=== PATIENT | female | born 1990 | race Caucasian/White ===

== ENCOUNTER 2018-02-02 09:07 | Emergency (ER) | payer SELFPAY ==
[2018-02-02 09:09] VITALS: BP 124/67; PULSE 101; RESP 16; TEMP 98.2; O2SAT 99
[2018-02-02] MEDS ORDERED: SODIUM CHLORIDE 0.9% FLUSH 10 ML FLUSH IVF PRN (09:30)
[2018-02-02] MEDS ORDERED: SODIUM CHLORID 0.9% 500 ML INJ 500 ML IV ONE (09:30)
--- NOTE | 2018-02-02 09:59 | PD ---
HPI Chief Complaint: Cardiac Complaint Time Seen by Provider: 09:21 Travel History International Travel<30 days: No Contact w/Intl Traveler<30days: No Traveled to known affect area: No History of Present Illness HPI 27-year-old female presents emergency department with reports of episode of shortness of breath, tachycardia, and mild hypertension while walking upstairs at work this morning. Patient states she called her OB, who requested she come in here to be checked out. Currently the patient feels fine. She has no lower extremity edema. She states she is normally very active , still has chronic cramping calf pain from her exercise. She denies any chest pain at this time. Patient is allergic to erythromycin. PFSH Past Medical History ?: Social History Alcohol Use: No Tobacco Use: No Substance Use: No Allergies-Medications (Allergen,Severity, Reaction): Coded Allergies: erythromycin base (Verified Allergy, Unknown, 02/02/18) Review of Systems Except as stated in HPI: all other systems reviewed are Neg General / Constitutional: No: Fever Eyes: No: Visual changes HENT: No: Headaches Cardiovascular: No: Chest Pain or Discomfort Respiratory: Positive: Shortness of Breath (See history of present illness per) Gastrointestinal: No: Abdominal Pain Genitourinary: No: Dysuria Musculoskeletal: No: Pain Skin: No Rash Neurologic: No: Weakness Psychiatric: No: Depression Endocrine: No: Polydipsia Hematologic/Lymphatic: No: Easy Bruising Physical Exam Narrative GENERAL: Patient appears in no acute distress. SKIN: Warm and dry. Normal color. Normal turgor. No rash. HEAD: Atraumatic. Normocephalic. EYES: Pupils equal and round. No scleral icterus. No injection or drainage. ENT: No nasal bleeding or discharge. Mucous membranes pink and moist. NECK: Trachea midline. Supple and nontender. CARDIOVASCULAR: Regular rate and rhythm. RESPIRATORY: No accessory muscle use. Clear to auscultation. Breath sounds equal bilaterally. GASTROINTESTINAL: Abdomen soft, non-tender, nondistended. Hepatic and splenic margins not palpable. MUSCULOSKELETAL: Extremities without clubbing, cyanosis, or edema. No obvious deformities. NEUROLOGICAL: Awake and alert. No obvious cranial nerve deficits. Motor grossly within normal limits. Five out of 5 muscle strength in the arms and legs. Normal speech. PSYCHIATRIC: Appropriate mood and affect; insight and judgment normal. Data Data Last Documented VS Vital Signs Date Time Temp Pulse Resp B/P (MAP) Pulse Ox O2 Delivery O2 Flow Rate FiO2 02/02/18 10:16 100 Room Air 02/02/18 09:09 98.2 101 16 124/67 (86) Orders Orders Electrocardiogram (02/02/18:29) Ckmb (Isoenzyme) Profile (02/02/18:29) Complete Blood Count With Diff (02/02/18:) Comprehensive Metabolic Panel (02/02/18) Prothrombin Time / Inr (Pt) (02/02/18) Act Partial Throm Time (Ptt) (02/02/18:) Troponin I (02/02/18) Ecg Monitoring (02/02/18) Iv Access Insert/Monitor (02/02/18) Oximetry (02/02/18) Oxygen Administration (02/02/18:29) Sodium Chloride 0.9% Flush (Ns Flush) (02/02/18:30) Sodium Chlorid 0.9% 500 Ml Inj (Ns 500 M (02/02/18:30) Beta Hcg (Quant/Titer) (02/02/18:29) Heart Tones (02/02/18:29) Us Leg Venous Doppler Bilat (02/02/18:29) Labs Laboratory Tests Test 02/02/18 10:10 White Blood Count 8.9 TH/MM3 Red Blood Count 4.31 MIL/MM3 Hemoglobin 13.9 GM/DL Hematocrit 39.9 % Mean Corpuscular Volume 92.5 FL Mean Corpuscular Hemoglobin 32.2 PG Mean Corpuscular Hemoglobin Concent 34.8 % Red Cell Distribution Width 12.5 % Platelet Count 212 TH/MM3 Mean Platelet Volume 8.8 FL Neutrophils (%) (Auto) 74.9 % Lymphocytes (%) (Auto) 19.5 % Monocytes (%) (Auto) 5.0 % Eosinophils (%) (Auto) 0.4 % Basophils (%) (Auto) 0.2 % Neutrophils # (Auto) 6.6 TH/MM3 Lymphocytes # (Auto) 1.7 TH/MM3 Monocytes # (Auto) 0.4 TH/MM3 Eosinophils # (Auto) 0.0 TH/MM3 Basophils # (Auto) 0.0 TH/MM3 CBC Comment DIFF FINAL Differential Comment Prothrombin Time 10.0 SEC Prothromb Time International Ratio 1.0 RATIO Activated Partial Thromboplast Time 26.1 SEC Blood Urea Nitrogen 7 MG/DL Creatinine 0.56 MG/DL Random Glucose 74 MG/DL Total Protein 7.5 GM/DL Albumin 3.6 GM/DL Calcium Level 8.8 MG/DL Alkaline Phosphatase 48 U/L Aspartate Amino Transf (AST/SGOT) 21 U/L Alanine Aminotransferase (ALT/SGPT) 25 U/L Total Bilirubin 0.5 MG/DL Sodium Level 140 MEQ/L Potassium Level 3.8 MEQ/L Chloride Level 106 MEQ/L Carbon Dioxide Level 23.8 MEQ/L Anion Gap 10 MEQ/L Estimat Glomerular Filtration Rate 131 ML/MIN Total Creatine Kinase 57 U/L Troponin I LESS THAN 0.02 NG/ML Human Chorionic Gonadotropin, Quant [id number] MIU/ML [facility] Medical Decision Making Medical Screen Exam Complete: Yes Emergency Medical Condition: Yes Differential Diagnosis Palpitations. Shortness of breath. 15 weeks . Narrative Course Patient is medically stable time exam. She is not tachycardic or tachypneic on exam. Labs ordered, including CBC, CMP, troponin, proBNP, serum hCG, and coagulation studies. Chest x-ray was discussed with patient refused. Bilateral lower extremity ultrasound ordered. Lower extremity ultrasounds are negative for DVTs. CBC is unremarkable. EKG shows sinus rhythm with a rate of 84. Chemistries are unremarkable. Troponin is less than 0.02. HCG is 26,540. heart tones show a heartbeat of 140/min. Patient is felt medically stable for discharge. I feel the patient is a very low risk. Patient is to rest and push fluids and follow-up with her OB as needed. Diagnosis Primary Impression: Near syncope Additional Impression: Qualified Codes: Z3A.15 - 15 weeks gestation of Referrals: [facility] Patient Instructions: General Instructions Departure Forms: Work Release Enter return to work date: Feb 03, 2018 Additional Instructions: Lower extremity ultrasounds are negative for DVTs. CBC is unremarkable. EKG shows sinus rhythm with a rate of 84. Chemistries are unremarkable. Troponin is less than 0.02. HCG is 26,540. heart tones show a heartbeat of 140/min. Patient is felt medically stable for discharge. I feel the patient is a very low risk. Patient is to rest and push fluids and follow-up with her OB as needed. Disposition: 01 DISCHARGE HOME Condition: Stable Zander Mcgee Feb 02, 2018 09:59
[2018-02-02 10:16] VITALS: O2SAT 100
[2018-02-02 10:27] LABS: AUTOMATED NEUTROPHIL # 6.6 TH/MM3 (1.8-7.7); BASOPHIL % 0.2 % (0.0-2.0); EOSINOPHIL % 0.4 % (0.0-4.0); HEMATOCRIT 39.9 % (35.0-46.0); HEMOGLOBIN 13.9 GM/DL (11.6-15.3); LYMPH % 19.5 % (9.0-44.0); LYMPHOCYTE # 1.7 TH/MM3 (1.0-4.8); MEAN CELL VOLUME 92.5 FL (80.0-100.0); MEAN CORPUSCULAR HEMOGLOBIN 32.2 PG (27.0-34.0); MEAN CORPUSCULAR HGB CONC 34.8 % (32.0-36.0); MEAN PLATELET VOLUME 8.8 FL (7.0-11.0); MONOCYTE # 0.4 TH/MM3 (0-0.9); NEUT % 74.9 % (16.0-70.0); PLATELET COUNT 212 TH/MM3 (150-450); RED BLOOD COUNT 4.31 MIL/MM3 (4.00-5.30); RED CELL DISTRIBUTION WIDTH 12.5 % (11.6-17.2); WHITE BLOOD COUNT 8.9 TH/MM3 (4.0-11.0)
[2018-02-02 10:44] LABS: ALBUMIN 3.6 GM/DL (3.4-5.0); AST (GOT) 21 U/L (15-37); BICARBONATE 23.8 MEQ/L (21.0-32.0); BLOOD UREA NITROGEN 7 MG/DL (7-18); CALCIUM 8.8 MG/DL (8.5-10.1); CHLORIDE 106 MEQ/L (98-107); CREATININE 0.56 MG/DL (0.50-1.00); GLOMERULAR FILTRATION RATE 131 ML/MIN (>89); GLUCOSE,RANDOM 74 MG/DL (74-106); SODIUM (NA) 140 MEQ/L (136-145)
--- NOTE | 2018-02-02 10:58 | RADRPT ---
EXAM DATE/TIME: 02/02/2018 10:03 [place] COMPARISON: No previous studies available for comparison. INDICATIONS : Bilateral leg swelling. MEDICAL HISTORY : . Shortness of breath. Mild hypertension. Tacycardia. Bilateral leg swelling. SURGICAL HISTORY : None. ENCOUNTER: Initial ACUITY: 2-5 days PAIN SCORE: 6/10 LOCATION: Bilateral leg. TECHNIQUE: Venous ultrasound of the left and right leg was performed from the inguinal ligament to the proximal calf. Real-time, color Doppler and spectral tracing, compression and augmentation techniques were us ed. FINDINGS: RIGHT LEG: There is normal compressibility of the deep venous system from the inguinal region to the proximal ca lf. No echogenic clot is seen in the lumen of the common femoral, femoral, popliteal, and posterior tibial veins. There is a normal response of the venous system to proximal and distal augmentation an d respiration. LEFT LEG: There is normal compressibility of the deep venous system from the inguinal region to the proximal ca lf. No echogenic clot is seen in the lumen of the common femoral, femoral, popliteal, and posterior tibial veins. There is a normal response of the venous system to proximal and distal augmentation an d respiration. CONCLUSION: No evidence of DVT or SVT. Amos Lema MD on February 02, 2018 at 10:55 Board Certified Radiologist. This report was verified electronically.
[2018-02-02 11:00] LABS: ALKALINE PHOSPHATASE 48 U/L (45-117); ALT (GPT) 25 U/L (10-53); TOTAL BILIRUBIN ADULT 0.5 MG/DL (0.2-1.0); TOTAL PROTEIN 7.5 GM/DL (6.4-8.2); TROPONIN I LESS THAN 0.02 NG/ML (0.02-0.05)
--- NOTE | 2018-02-02 14:47 | EKG ---
Date Performed: 02/02/2018 Time Performed: 09:59:34 PTAGE: 27 years EKG: Sinus rhythm WITH SINUS ARRHYTHMIA WITH SHORT WA INTERVAL BORDERLINE ECG NO PREVIOUS TRACING DOCTOR: Lucas Cortés Interpretating Date/Time 02/02/2018 14:44:16
== END 2018-02-02 11:53 | disposition home or self-care (01) ==
LOC: NEPD 09:07
DX: O26.892 Other specified pregnancy related conditions, second trimester (principal); R55 Syncope and collapse; Z3A.15 15 weeks gestation of pregnancy
CPT/HCPCS: 80053; 82550; 84484; 84702; 85025; 85610; 85730; 93005; 93970; 99285; J7040

== ENCOUNTER 2018-07-01 06:41 | Inpatient (IN) ==
[2018-07-01] MEDS ORDERED: Sodium Chlor 0.9% Inj 500 ML IV.SIG PRN (07:29)
[2018-07-01] MEDS ORDERED: Sod Chloride 0.9% Inj 1,000 ML IV.CONT PRN (07:29)
[2018-07-01] MEDS ORDERED: Naloxone Inj 0.4 MG/ML Vial IV.PUSH PRN (07:29)
[2018-07-01] MEDS ORDERED: fentaNYL Citrate Inj 100 MCG/2 ML Ampul IV.PUSH PRN ×2 (07:29)
[2018-07-01] MEDS ORDERED: Penicillin G Potassium Inj 5,000,000 UNIT in Sodium Chloride 0.9% Inj 100 ML IV.SIG ONE (07:29)
[2018-07-01] MEDS ORDERED: Oxytocin 30 Units/500ml Premix 30 UNITS/500 ML BAG IV.SIG ONE (07:29)
[2018-07-01] MEDS ORDERED: Citric Acid/Sodium Citrate Liq 30 ML UDC PO SCH (07:30)
--- NOTE | 2018-07-01 07:35 | P.HPOB ---
History of Present Illness Primary Care Physician: UNKNOWN Dr. Morrison Chief Complaint: Water broke History of Present Illness: Patient 28-year-old white female 35 weeks and 5 days patient of [facility] who presents with spontaneous rupture membranes, amnio sure is positive. She has no pain bleeding, NST is reactive and she is not daivd Weeks Gestation:: 35 Para: 0 : 1 Review of Systems Constitutional: Denies anorexia, Denies body ache(s), Denies chills, Denies daytime sleepiness, Denies excessive sweating, Denies fatigue, Denies fever(s), Denies headache(s), Denies increased appetite, Denies lack of energy, Denies malaise, Denies night sweats, Denies weakness, Denies weight gain, Denies weight loss, Denies other Cardiovascular: Denies bluish discoloration of hand/feet, Denies chest pain, Denies chest pain at rest, Denies chest pain with activity, Denies excessive sweating, Denies fainting, Denies fast heart rate, Denies foot swelling, Denies generalized swelling, Denies irregular heart rhythm, Denies leg pain with activity, Denies leg sores, Denies leg swelling, Denies lightheadedness, Denies radiating jaw, neck or arm pain, Denies rapid, pounding, or irregular heartbeat , Denies shortness of breath, Denies shortness of breath with activity, Denies shortness of breath when lying down, Denies shortness of breath causing sudden awakening, Denies slow heart rate, Denies other Respiratory: Denies change in phlegm color, Denies chest congestion, Denies cough, Denies coughing up blood, Denies excessive phlegm production, Denies pain on inspiration, Denies pain with cough, Denies shortness of breath, Denies shortness of breath with activity, Denies snoring, Denies stridor, Denies wheezing, Denies other Gastrointestinal: Denies abdominal pain, Denies belching, Denies black, tarry stools, Denies bloating, Denies bright, red blood in stools, Denies change in bowel habits, Denies constant urge to pass stool, Denies change in stools, Denies coffee ground vomit, Denies constipation, Denies cramping, Denies difficulty swallowing, Denies excessive passing of gas, Denies feeling full early, Denies heartburn, Denies incontinent of stools, Denies loose stools, Denies nausea, Denies pain with swallowing, Denies vomiting, Denies vomiting blood, Denies other Genitourinary: Reports vaginal discharge, Denies abnormal periods, Denies abnormal vaginal bleeding, Denies absent period, Denies bleeding between periods , Denies blood in urine, Denies difficulty starting urination, Denies difficulty urinating, Denies dribbling after urination, Denies frequent nighttime urination, Denies genital itching, Denies genital lesions, Denies heavy periods, Denies hot flashes, Denies light periods, Denies nipple discharge , Denies painful intercourse, Denies painful periods, Denies painful urination, Denies pelvic pain, Denies prolapse symptoms, Denies sexual problems, Denies side pain, Denies urinary incontinence, Denies urinary urgency, Denies vaginal dryness, Denies vaginal odor, Denies vaginal itching, Denies other Neurologic: Denies abnormal hearing, Denies abnormal movements, Denies abnormal speech, Denies abnormal walking, Denies behavioral changes, Denies burning sensations, Denies confusion, Denies dizziness, Denies fainting, Denies frequent falls, Denies headache(s), Denies lack of coordination, Denies localized weakness, Denies loss of vision, Denies memory loss, Denies numbness, Denies other visual disturbances, Denies radiating pain, Denies restless legs, Denies convulsions, Denies seizure-like activity, Denies sensory deficit, Denies tingling, Denies tingling/numbness/burning sensations, Denies tremor(s), Denies unsteadiness, Denies weakness, Denies other PMFSH - Medical History Medical History: Medical History (Last Updated 07/01/18 @ 07:41 by Carlitos Sesay MD) Asthma - Tobacco History Smoking Status: Never smoker - Alcohol History How Often Do You Have a Drink Containing Alcohol: Never - Substance Use History Substance History: No History of Abuse - Travel History History of Recent Travel: No Recent Travel in the [facility] Within the Last 8 Weeks: No Recent Travel Out of the Country Within the Last 8 Weeks: No Medications and Allergies Active Medications: Active Medications Citric Acid/Sodium Citrate (Sodium Citrate/Citric Acid Liq) 30 ml PO GUN WELDER SENTHIL Stop: 07/05/18 07:29 Fentanyl Citrate (Fentanyl Inj) 50 mcg IV.PUSH Q1H PRN PRN Reason: Pain Scale 3 - 5 Fentanyl Citrate (Fentanyl Inj) 100 mcg IV.PUSH Q1H PRN PRN Reason: PAIN SCALE 6 TO 10 Lidocaine HCl (Xylocaine 1% Inj) 0.1 ml I-DERMAL PRN PRN PRN Reason: For IV start Stop: 07/04/18 07:28 Allergies Allergy/AdvReac Type Severity Reaction Status Date / Time erythromycin base Allergy Unknown Verified 02/02/18 09:11 Home Medications Medication Instructions Recorded Confirmed Type [id number] acid 1 tab PO DAILY 07/01/18 07/01/18 History [PreNata] Exam Vital signs: Vital Signs 07/01/18 07:01 Temperature 98.4 F Pulse Rate 66 Respiratory Rate 18 Blood Pressure 140/96 H Intake & Output 06/30/18 07/01/18 07/01/18 18:59 06:59 18:59 Weight 65.771 kg - Constitutional no acute distress - Routine HEENT Exam Head: Present: normocephalic, atraumatic Eye: Present: PERRL - Routine Respiratory Exam Present: CTA bilaterally - Routine Cardiovascular Exam Present: RRR, S1, S2 - Routine Exam Comments: Cervix is 1/50/-3 posterior/cephalic - Routine Neurological Exam Present: alert, oriented X3, CN II-XII intact Results - Labs Labs: amnisure+ Caprini VTE Risk Assessment Caprini VTE Risk Assessment: No/Low Risk (score <= 1) Caprini Risk Assessment Model: Point Value = 1 Point Value = 2 Point Value = 3 Point Value = 5 Age 41-60 Minor surgery BMI > 25 kg/m2 Swollen legs Varicose veins or History of unexplained or recurrent spontaneous Oral contraceptives or hormone replacement Sepsis (< 1 month) Serious lung disease, including pneumonia (< 1 month) Abnormal pulmonary function Acute myocardial infarction Congestive heart failure (< 1 month) History of inflammatory bowel disease Medical patient at bed rest Age 61-74 Arthroscopic surgery Major open surgery (> 45 min) Laparoscopic surgery (> 45 min) Malignancy Confined to bed (> 72 hours) Immobilizing plaster cast Central venous access Age >= 75 History of VTE Family history of VTE Factor V Leiden Prothrombin [id number] Lupus anticoagulant Anticardiolipin antibodies Elevated serum homocysteine Heparin-induced thrombocytopenia Other congenital or acquired thrombophilia Stroke (< 1 month) Elective arthroplasty Hip, pelvis, or leg fracture Acute spinal cord injury (< 1 month) Prophylaxis Regimen: Total Risk Factor Score Risk Level Prophylaxis Regimen 0-1 Low Early ambulation 2 Moderate Order ONE of the following: *Sequential Compression Device (SCD) *Heparin 5000 units SQ BID 3-4 Higher Order ONE of the following medications: *Heparin 5000 units SQ TID *Enoxaparin/Lovenox 40 mg SQ daily (WT < 150 kg, CrCl > 30 mL/min) *Enoxaparin/Lovenox 30 mg SQ daily (WT < 150 kg, CrCl > 10-29 mL/min) *Enoxaparin/Lovenox 30 mg SQ BID (WT < 150 kg, CrCl > 30 mL/min) AND/OR *Sequential Compression Device (SCD) 5 or more Highest Order ONE of the following medications: *Heparin 5000 units SQ TID (Preferred with Epidurals) *Enoxaparin/Lovenox 40 mg SQ daily (WT < 150 kg, CrCl > 30 mL/min) *Enoxaparin/Lovenox 30 mg SQ daily (WT < 150 kg, CrCl > 10-29 mL/min) *Enoxaparin/Lovenox 30 mg SQ BID (WT < 150 kg, CrCl > 30 mL/min) AND *Sequential Compression Device (SCD) Assessment and Plan - Diagnosis (1) Premature rupture of membranes (PROM) affecting first Code(s): O42.90 - Premature rupture of membranes, unspecified as to length of time between rupture and onset of labor, unspecified weeks of gestation Status : Acute (2) 35 weeks gestation of Code(s): Z3A.35 - 35 weeks gestation of Status: Acute - Plan Patient's primiparous 35 week36 week IUP with PPROM, amnio sure is positive. Patient not david her in labor at this time cervix is 1 cm dilated 50% Plan is admission to the hospital will induce labor due to being ruptured after [address] rosario is on for K[facility]
[2018-07-01] MEDS ORDERED: Betamethasone Sod Phos/Acetate Inj 30 MG/5 ML Vial IM ONE (08:06)
[2018-07-01 08:11] LABS: Baso % (Auto) 0.3 % (0.0-2.0); Eos # (Auto) 0.1 th/mm3 (0.0-0.4); Hematocrit 37.4 % (35.0-46.0); Hemoglobin 12.4 gm/dL (11.6-15.3); Lymph # (Auto) 2.2 th/mm3 (1.0-4.8); Lymph % (Auto) 17.4 % (9.0-44.0); Mean Corpuscular HGB Conc 33.2 % (32.0-36.0); Mean Corpuscular Volume 93.4 fL (80.0-100.0); Mean Platelet Volume 10.3 fL (7.0-11.0); Mono # (Auto) 0.9 th/mm3 (0.0-0.9); Mono % (Auto) 7.1 % (0.0-8.0); Neut # (Auto) 9.2 th/mm3 (1.8-7.7); Neut % (Auto) 74.2 % (16.0-70.0); Platelet Count 181 th/mm3 (150-450); Red Cell Distribution Width 12.8 % (11.6-17.2); White Blood Count 12.4 th/mm3 (4.0-11.0)
[2018-07-01 08:16] LABS: Bacteria,Urine Rare /hpf; Bilirubin,Urine Negative (Negative); Clarity,Urine Clear (Clear); Color,Urine Straw (Yellw/Straw); Glucose,Urine (UA) Negative (Negative); Leukocyte Esterase,Urine Negative (Negative); Nitrite,Urine Negative (Negative); Specific Gravity,Urine 1.008 (1.002-1.035); Squamous Epithelial Cell,Urine 2 /hpf (0-5)
[2018-07-01 08:21] LABS: Amphetamine Urine With Conf Neg (Neg); Benzodiazepine Urine With Conf Neg (Neg)
--- NOTE | 2018-07-01 10:47 | P.OBGPN ---
S: Patient doing well, no contractions, no fever or chills, denies headache, blurred vision or epigastric pain. O: VS: Exam: deferred, on arrival was reported to be grossly ruptured, cervix 1/50/- 3. Abdomen: Soft, gravid, no fundal tenderness FHTs: 140s, moderate variability, accelerations present, no decelerations TOCO: Lots of artifact, but no obvious contractions A/P 28-year-old G1 at 35 weeks and 5 days by 7 week ultrasound admitted for PPROM. 1. IUP: Category 1 tracing, continuous monitoring. -Cephalic by ultrasound on arrival, GBS negative as an outpatient, estimated weight clinically 6-1/2 pounds. -Male fetus 2. PPROM: Given late gestational age and no expectation to spontaneously deliver in the immediate future and no signs of infection plan is for expectant management until she received her second dose of betamethasone tomorrow at 8:30 AM and then begin augmentation. The patient becomes febrile will augment or if begins to progress spontaneously will not tocolyse - BID EFM, allow to eat, stop IV fluids, to antepartum status 3. Elevated blood pressures: No signs or symptoms of preeclampsia, will collect CMP and urine protein creatinine ratio via in and out cath.
[2018-07-01] MEDS ORDERED: Penicillin G Potassium Inj 2,500,000 UNIT in Sodium Chlor 0.9% Inj 100 ML IV.SIG SCH (11:31)
[2018-07-01 13:35] LABS: Albumin 2.6 g/dL (3.4-5.0); Anion Gap 10 meq/L (5-15); Aspartate Aminotransferase 30 U/L (15-37); Blood Urea Nitrogen 11 mg/dL (7-18); Calcium 8.7 mg/dL (8.5-10.1); Carbon Dioxide 19.5 meq/L (21.0-32.0); Chloride 110 meq/L (98-107); Glomerular Filtration Rate Greater Than 89 mL/min (>89); Glucose,Random 84 mg/dL (74-106); Potassium 4.2 meq/L (3.5-5.1); Sodium 139 meq/L (136-145)
[2018-07-01 13:36] LABS: Alanine Aminotransferase 18 U/L (10-53)
[2018-07-01 13:38] LABS: Alkaline Phosphatase 400 U/L (45-117); Total Protein 6.9 g/dL (6.4-8.2)
[2018-07-01] MEDS ORDERED: Butalbital/APAP/Caff 50/325/40 MG Tablet PO ONE (16:00)
[2018-07-01 16:10] LABS: Protein/Creatinine Ratio,Urine 0.29 (0.00-0.14)
[2018-07-02] MEDS: Prenatal Vit/Ca/Iron/Folic Acid Tablet PO SCH (08:05)
--- NOTE | 2018-07-02 08:29 | P.OBANTE ---
Objective Vital Signs and I&O: Vital Signs 07/01/18 09:00 07/01/18 09:35 07/01/18 09:36 Temperature 98.3 F Pulse Rate 78 Respiratory Rate 18 16 Blood Pressure 131/76 07/01/18 09:40 07/01/18 10:55 07/01/18 11:00 Temperature 99.0 F Pulse Rate 93 H 81 Respiratory Rate 18 Blood Pressure 07/01/18 11:25 07/01/18 12:00 07/01/18 14:37 Temperature 98.0 F Pulse Rate 77 88 Respiratory Rate 17 16 Blood Pressure 142/93 H 07/01/18 15:10 07/01/18 15:20 07/01/18 15:50 Temperature Pulse Rate 88 87 86 Respiratory Rate Blood Pressure 130/71 07/01/18 18:00 07/01/18 19:36 07/01/18 19:37 Temperature Pulse Rate 80 Respiratory Rate 17 16 Blood Pressure 137/96 H 07/01/18 20:25 07/01/18 22:00 07/02/18 00:00 Temperature 97.8 F 98.4 F Pulse Rate 75 67 Respiratory Rate 16 14 Blood Pressure 112/52 L 07/02/18 02:00 07/02/18 04:31 07/02/18 04:45 Temperature 98.8 F 98.1 F Pulse Rate 81 73 Respiratory Rate Blood Pressure 124/72 07/02/18 04:55 07/02/18 05:15 07/02/18 05:55 Temperature Pulse Rate 76 78 70 Respiratory Rate Blood Pressure 07/02/18 06:00 07/02/18 06:23 07/02/18 06:55 Temperature 98.2 F Pulse Rate 77 78 Respiratory Rate Blood Pressure 07/02/18 07:05 07/02/18 07:20 07/02/18 07:50 Temperature Pulse Rate 74 67 88 Respiratory Rate Blood Pressure 07/02/18 07:55 Temperature Pulse Rate 77 Respiratory Rate Blood Pressure Intake & Output 07/01/18 07/02/18 07/02/18 18:59 06:59 18:59 Weight 65.771 kg Lab and Micro Results: Laboratory Results - last 24 hr 07/01/18 07/01/18 07/01/18 08:00 08:00 12:12 Sodium 139 Potassium 4.2 Chloride 110 H Carbon Dioxide 19.5 L Anion Gap 10 BUN 11 Creatinine 0.72 Estimated GFR Greater than 89 Random Glucose 84 Calcium 8.7 Total Bilirubin 0.5 AST 30 ALT 18 Alkaline Phosphatase 400 H Total Protein 6.9 Albumin 2.6 L Ur Random Creatinine 39 U Random Total Protein 11.5 Protein/Creatinin Ratio 0.29 H Blood Type B Positive Blood Type Recheck Required Antibody Screen Negative Physical Exam: GENERAL: Well-nourished, well-developed patient. CARDIOVASCULAR: Regular rate and rhythm without murmurs, gallops, or rubs. RESPIRATORY: Breath sounds equal bilaterally. No accessory muscle use. ABDOMEN/GI: Abdomen soft, non-tender. Fundus: [-] GENITOURINARY: External Genitalia: Cervix: defer Presentation: ceph Membranes: srom Uterine Contractions: [-] FHT's: Category: [-] Baseline: [-] Reactive: [-] Variability: [-] Decels: [-] EXTREMITIES: No cyanosis or edema, non-tender, without signs of DVT. Assessment and Plan - Plan 28-year-old G1 at 35 weeks and 6 days by 7 week ultrasound admitted for PPROM. 1. IUP: Category 1 tracing, continuous monitoring. -Cephalic by ultrasound on arrival, GBS negative as an outpatient, estimated weight clinically 6-1/2 pounds. -Male fetus 2. PPROM: Given late gestational age and no expectation to spontaneously deliver in the immediate future and no signs of infection plan is for expectant management until she received her second dose of betamethasone today at 8:30 AM and then begin induction this afternoon. 3. Elevated blood pressures: No signs or symptoms of preeclampsia, will collect CMP and urine protein creatinine ratio via in and out cath.
[2018-07-02] MEDS ORDERED: Betamethasone Sod Phos/Acetate Inj 30 MG/5 ML Vial IM ONE (08:30)
[2018-07-02] MEDS ORDERED: Oxytocin 30 Units/500ml Premix 30 UNITS/500 ML BAG IV.SIG PRN (10:14)
[2018-07-02] MEDS ORDERED: Sodium Chlor 0.9% Inj 500 ML IV.SIG PRN (10:18)
[2018-07-02] MEDS ORDERED: Sod Chloride 0.9% Inj 1,000 ML IV.CONT PRN (10:18)
[2018-07-02] MEDS ORDERED: fentaNYL Citrate Inj 100 MCG/2 ML Ampul IV.PUSH PRN ×2 (10:18)
[2018-07-02] MEDS ORDERED: Penicillin G Potassium Inj 5,000,000 UNIT in Sodium Chloride 0.9% Inj 100 ML IV.SIG ONE (10:30)
[2018-07-02] MEDS ORDERED: Citric Acid/Sodium Citrate Liq 30 ML UDC PO SCH (10:30)
[2018-07-02] MEDS ORDERED: Oxytocin 30 Units/500ml Premix 30 UNITS/500 ML BAG IV.SIG ONE (10:35)
[2018-07-02] MEDS ORDERED: fentaNYL 2MCG-Bupiv 0.125% Epi 150 ML EPIDURAL ONE (13:02)
[2018-07-02] MEDS ORDERED: fentaNYL Citrate Inj 100 MCG/2 ML Ampul EPIDURAL ONE (14:16)
[2018-07-02] MEDS ORDERED: fentaNYL 2MCG-Bupiv 0.125% Epi 150 ML EPIDURAL PRN (14:16)
[2018-07-02] MEDS ORDERED: Penicillin G Potassium Inj 2,500,000 UNIT in Sodium Chlor 0.9% Inj 100 ML IV.SIG SCH (14:30)
[2018-07-02] MEDS ORDERED: Witch Hazel 50%/Glyderin 12.5% 40 Pad Jar RECTAL PRN (16:30)
[2018-07-02] MEDS ORDERED: Oxytocin 30 Units/500ml Premix 30 UNITS/500 ML BAG IV.CONT SCH (16:30)
[2018-07-02] MEDS ORDERED: Acetaminophen 325 MG Tablet PO PRN (16:30)
[2018-07-02] MEDS ORDERED: Benzocaine 20% Top Spray 60 ML Can TOPICAL PRN (16:30)
[2018-07-02] MEDS ORDERED: Naloxone Inj 0.4 MG/ML Vial IV.PUSH PRN (16:30)
[2018-07-02] MEDS ORDERED: Bisacodyl 10 MG Supp RECTAL PRN (16:30)
--- NOTE | 2018-07-02 16:34 | P.OBDELI ---
Weeks Gestation: 35 Active Labor Start Date: 07/02/18 Medical Induction of Labor: No Artificial Rupture of Membrane: No Anesthesia: Epidural Episiotomy: none Vaginal Delivery: Normal Presentation: Occiput anterior Nuchal Cord: x1 Delayed Cord Clamping (45 sec): No (tight nucal cord cut on perineum) Placenta: Spontaneous delivery, Intact, 3 vessel cord Laceration: Vaginal, 1 deg Estimated blood loss (mL): 250 Male A score (1 min): 8 score (5 min): 9 (Mansi reddy of [place]. Small first degree laceration 1cm right periurethral repaired with 5-0 vicryl)
[2018-07-02] MEDS ORDERED: Measles/Mumps/Rubella Vaccine Inj 0.5 ML Vial SQ ONE (17:00)
[2018-07-02] MEDS ORDERED: Zolpidem Tartrate 5 MG Tablet PO PRN (17:00)
[2018-07-02] MEDS ORDERED: Diphtheria/Tetanus/Pertussis Vaccine Inj 0.5 ML Syringe IM ONE (17:00)
[2018-07-02] MEDS: Ibuprofen 400 MG Tablet PO PRN (21:30)
[2018-07-03] MEDS: Prenatal Vit/Ca/Iron/Folic Acid Tablet PO SCH (08:06)
[2018-07-03] MEDS: Senna/Docusate Sodium 8.6/50 MG Tablet PO SCH ×2 (08:06→22:17)
--- NOTE | 2018-07-03 10:51 | P.PNOB ---
Subjective Post day: 1 Interval history: Doing well Baby is great Bleeding is normal Pain is well controlled Objective Vital Signs/I&O: Vital Signs 07/02/18 10:55 07/02/18 12:30 07/02/18 12:31 Temperature 98.2 F Pulse Rate 81 78 86 Respiratory Rate Blood Pressure 135/82 07/02/18 13:10 07/02/18 13:20 07/02/18 13:21 Temperature 98.4 F Pulse Rate 90 87 77 Respiratory Rate 16 Blood Pressure 131/69 126/62 07/02/18 13:26 07/02/18 13:30 07/02/18 13:35 Temperature Pulse Rate 84 88 89 Respiratory Rate Blood Pressure 124/58 L 124/67 07/02/18 14:06 07/02/18 15:10 07/02/18 15:40 Temperature Pulse Rate 78 86 77 Respiratory Rate 16 Blood Pressure 120/64 131/65 128/73 07/02/18 16:28 07/02/18 16:46 07/02/18 16:54 Temperature 99.1 F Pulse Rate 63 Respiratory Rate 16 16 Blood Pressure 140/81 07/02/18 17:01 07/02/18 17:07 07/02/18 17:30 Temperature Pulse Rate 75 74 Respiratory Rate 16 16 Blood Pressure 133/78 125/76 07/02/18 17:34 07/02/18 17:45 07/02/18 18:14 Temperature 98.1 F Pulse Rate 59 L 64 Respiratory Rate 16 16 20 Blood Pressure 130/47 L 139/77 07/02/18 19:47 07/03/18 08:00 Temperature 98.2 F 98.3 F Pulse Rate 79 73 Respiratory Rate 17 20 Blood Pressure 118/74 113/70 Result Diagrams: 07/01/18 08:00 07/01/18 12:12 Objective Remarks: GENERAL: Well-nourished, well-developed patient. CARDIOVASCULAR: Regular rate and rhythm without murmurs, gallops, or rubs. RESPIRATORY: Breath sounds equal bilaterally. No accessory muscle use. ABDOMEN/GI: Abdomen soft, non-tender. Fundus: Firm, non-tender at umbilicus. GENITOURINARY: Light to moderate bleeding. EXTREMITIES: No cyanosis or edema, non-tender, without signs of DVT. Medications and IVs: Active Medications Acetaminophen (Tylenol) 650 mg PO Q4H PRN PRN Reason: PAIN SCALE 1 TO 2 Al Hydroxide/Mg Hydroxide (Milk Of Magnesia Liq) 30 ml PO Q12H PRN PRN Reason: Mild Constipation Benzocaine (Americaine 20% [place]) 1 spray TOPICAL Q4H PRN PRN Reason: For Perineum Discomfort Last Admin: 07/02/18 21:30 Dose: 1 spray Bisacodyl (Dulcolax Supp) 10 mg RECTAL DAILY PRN PRN Reason: SEVERE CONSITIPATION Ephedrine Sulfate (Ephedrine/Ns Syringe) 10 mg IV.PUSH UNSCH PRN PRN Reason: SEE LABEL COMMENTS Stop: 07/03/18 14:16 Oxytocin (Pitocin 30 Units/Ns 500 Ml Premix) 30 units in 500 mls @ 2 mls/hr IV.SIG TITRATE PRN; Protocol PRN Reason: For induction of labor Ibuprofen (Motrin) 800 mg PO Q8H PRN PRN Reason: For cramping Last Admin: 07/02/18 21:30 Dose: 800 mg Lactulose (Lactulose Liq) 30 ml PO DAILY PRN PRN Reason: SEVERE CONSITIPATION Miscellaneous Information (Misc Information) 1 each OTHER UNSCH PRN PRN Reason: SEE LABEL COMMENTS Stop: 07/03/18 14:16 Miscellaneous Information (Misc Information) 1 each OTHER UNSCH PRN PRN Reason: SEE LABEL COMMENTS Stop: 07/03/18 14:16 Naloxone HCl (Narcan Inj) 0.1 mg IV.PUSH Q2M PRN PRN Reason: for opiate reversal Ondansetron HCl (Zofran Odt) 4 mg PO Q6H PRN PRN Reason: NAUSEA OR VOMITING Vit/Calcium/Iron/Folic Ac (Stuartnatal Plus 3) 1 tab PO DAILY SENTHIL Last Admin: 07/03/18 08:06 Dose: 1 tab Senna/Docusate Sodium (Liudmila-Colace) 1 tab PO BID SENTHIL Last Admin: 07/03/18 08:06 Dose: 1 tab Sennosides (Senokot) 17.2 mg PO Q12H PRN PRN Reason: Moderate Constipation Sodium Chloride (Ns Flush) 2 ml IV.FLUSH BID SENTHIL Sodium Chloride (Ns Flush) 2 ml IV.FLUSH PRN PRN PRN Reason: FLUSH AFTER USING IV ACCESS Witch Christine/Glycerin (Tucks Pads) 1 applicatio RECTAL QID PRN PRN Reason: HEMORRHOIDS Last Admin: 07/02/18 21:30 Dose: 1 applicatio Zolpidem Tartrate (Ambien) 5 mg PO HS PRN PRN Reason: SLEEP Assessment and Plan - Plan PPD#1 Doing well
[2018-07-03] MEDS: Ibuprofen 400 MG Tablet PO PRN ×2 (12:56→22:14)
[2018-07-04] MEDS: Senna/Docusate Sodium 8.6/50 MG Tablet PO SCH ×2 (07:42→08:19)
[2018-07-04] MEDS: Ibuprofen 400 MG Tablet PO PRN (08:18)
[2018-07-04] MEDS: Prenatal Vit/Ca/Iron/Folic Acid Tablet PO SCH (08:19)
== END 2018-07-04 11:00 | disposition home or self-care (01) ==
LOC: HOBED 06:41 → H2E 07:35 → H1EA 07-02 18:09
PROVIDERS: ADMIT Obstetrics & Gynecology; ATTEND Obstetrics & Gynecology